=== PATIENT | female | born 1965 | race Caucasian/White ===

== ENCOUNTER 2016-12-29 19:31 | Observation (INO) | payer MEDICARE ==
[2016-12-29] MEDS ORDERED: Sodium Chloride 0.9% 1000 ML 1,000 ML IV STA (19:56)
[2016-12-29] MEDS ORDERED: Sodium Chloride 0.9% 1000 ML 1,000 ML ONE ×3 (20:01→21:00)
--- NOTE | 2016-12-29 20:01 | ERPHSYRPT ---
- History of Present Illness Time Seen by Provider: 12/29/16 21:51 Source: patient Patient Subjective Stated Complaint: pt continues to state that her belly hurts and she cannot open her eyes - points to her upper abdomen - continues to state "help me' - reports that she has been vomiting all day - states that she is in her room at home Triage Nursing Assessment: ambulatory to treatment area - requires assistance to walk. alert - refuses to open eyes or state name and birthday. resps labored per anxiety. skin pwd - no rash/injury Physician History: 51-year-old female was brought into the emergency room by her mother with complaining of multiple different complaints including abdominal pain, not feeling well, very confused, cannot open her eyes, whole body hurts. Patient's mother states that when she left home early in the morning went for work and since then she came back from work. She found her very confused and was complaining of abdominal pain. Allergies/Adverse Reactions: meperidine HCl [From Demerol] Adverse Reaction (Verified 12/29/16 19:38) morphine Adverse Reaction (Verified 12/29/16 19:38) Home Medications: Duloxetine HCl [Cymbalta] 60 mg PO BID 10/24/13 [History] Omeprazole [Prilosec] 40 mg PO DAILY 10/24/13 [History] Propranolol HCl [Inderal LA] 60 mg PO DAILY 10/24/13 [History] Tizanidine HCl 4 mg [Zanaflex 4 MG] 4 mg PO TID PRN PRN 10/24/13 [History] Calcium Carbonate [Calcium] 600 mg PO DAILY 05/11/16 [History] Ergocalciferol (Vitamin D2) [Vitamin D2] 50,000 units PO UD 05/11/16 [History] Ferrous Sulfate 325 mg [Feosol 325 mg] 325 mg PO QID 05/11/16 [History] Folic Acid 1 mg PO DAILY 05/11/16 [History] Ibuprofen 600 mg PO UD 05/11/16 [History] Levothyroxine Sodium 25 Mcg [Synthroid 25 Mcg] 25 mcg PO DAILY 05/11/16 [ History] Morphine Sulfate [Morphine Sulfate ER] 15 mg PO Q12H 06/13/16 [History] Hx Tetanus, Diphtheria Vaccination/Date Given: No Hx Influenza Vaccination/Date Given: No Hx Pneumococcal Vaccination/Date Given: No Immunizations Up to Date: No - Review of Systems Constitutional: No Symptoms Eyes: No Symptoms Ears, Nose, & Throat: No Symptoms Respiratory: No Cough, No Dyspnea Cardiac: No Chest Pain, No Edema, No Syncope Abdominal/Gastrointestinal: Abdominal Pain, Nausea, Vomiting, No Diarrhea Genitourinary Symptoms: No Dysuria Musculoskeletal: No Back Pain, No Neck Pain Skin: No Rash Neurological: No Dizziness, No Focal Weakness, No Sensory Changes Psychological: No Symptoms Endocrine: No Symptoms All Other Systems: Unable due to condition - Past Medical History Pertinent Past Medical History: Yes Neurological History: Migraines, Other ENT History: No Pertinent History Cardiac History: Hypertension, Other Respiratory History: No Pertinent History Endocrine Medical History: Hypothyroidism Musculoskeletal History: Degenerative Disk Disease, Fibromyalgia GI Medical History: GERD History: No Pertinent History Psycho-Social History: No Pertinent History, Bipolar Female Reproductive Disorders: No Pertinent History Other Medical History: fractured L ankle 02/26/16. Pt got out of a boot in July. See chart for list of past medical history - Past Surgical History Past Surgical History: Yes Neuro Surgical History: No Pertinent History Cardiac: No Pertinent History Respiratory: No Pertinent History Gastrointestinal: Cholecystectomy Genitourinary: No Pertinent History Musculoskeletal: Orthopedic Surgery Female Surgical History: Hysterectomy, Tubal Ligation Other Surgical History: tonsil, - Social History Smoking Status: Never smoker How long have you smoked: 20 Exposure to second hand smoke: No Drug Use: none Patient Lives Alone: No - Nursing Vital Signs Nursing Vital Signs: Initial Vital Signs Temperature 98.7 F Temperature Source Rectal Pulse Rate 72 Respiratory Rate 16 Blood Pressure [Right Arm] 149/88 Pain Intensity 2 - Physical Exam General Appearance: mild distress, anxiety, lethargy Eye Exam: PERRL/EOMI, eyes nml inspection Ears, Nose, Throat Exam: normal ENT inspection, TMs normal, pharynx normal, moist mucous membranes Neck Exam: normal inspection, non-tender, supple, full range of motion Respiratory Exam: normal breath sounds, lungs clear, No respiratory distress Cardiovascular Exam: regular rate/rhythm, normal heart sounds, normal peripheral pulses Gastrointestinal/Abdomen Exam: soft, normal bowel sounds, No tenderness, No mass Back Exam: normal inspection, normal range of motion, No CVA tenderness, No vertebral tenderness Extremity Exam: normal inspection, normal range of motion, pelvis stable Neurologic Exam: sensation nml, disoriented, confusion, agitation, intoxicated appearance, No motor deficits, No sensory deficit, No uncooperative Skin Exam: normal color, warm, dry, No rash Lymphatic Exam: No adenopathy SpO2 Interpretation: normal SpO2: 99 Oxygen Delivery: Room Air - Course Nursing assessment & vital signs reviewed: Yes EKG Interpreted by Me: Sinus Rhythm Ordered Tests: Active Orders 24 hr Category Date Time Status Microarray Analyst STAT Care 12/29/16 20:29 Active EKG-ER Only STAT Care 12/29/16 19:56 Active IV Insertion STAT Care 12/29/16 19:59 Active cath [Cath for Specimen-Straight] STAT Care 12/29/16 20:19 Active HEAD WITHOUT CONTRAST [CT] Stat Exams 12/29/16 19:58 Taken AMYLASE Stat Lab 12/29/16 20:00 Completed CBC W DIFF Stat Lab 12/29/16 20:00 Completed CMP Stat Lab 12/29/16 20:00 Completed LIPASE Stat Lab 12/29/16 20:00 Completed Lactic Acid Stat Lab 12/29/16 20:00 Results Lactic Acid Stat Lab 12/29/16 21:45 Ordered TROPONIN Stat Lab 12/29/16 20:00 Completed UA W/ MICROSCOPIC Stat Lab 12/29/16 20:15 Completed Urine Triage Profile Stat Lab 12/29/16 20:15 Completed Medication Summary Generic Name Dose Route Start Last Admin Trade Name Freq PRN Reason Stop Dose Admin Sodium Chloride 2,000 mls @ 999 mls/hr 12/29/16 20:44 12/29/16 20:54 Sodium Chloride 0.9% 1000 Ml IV 12/29/16 22:44 999 mls/hr .Q2H1M STA Administration Discontinued Medications Generic Name Dose Route Start Last Admin Trade Name Freq PRN Reason Stop Dose Admin Sodium Chloride 1,000 mls @ 999 mls/hr 12/29/16 19:56 12/29/16 20:01 Sodium Chloride 0.9% 1000 Ml IV 12/29/16 20:56 999 mls/hr .Q1H1M STA Administration Sodium Chloride Confirm 12/29/16 20:01 Sodium Chloride 0.9% 1000 Ml Administered 12/29/16 20:02 Dose 1,000 mls @ ud .ROUTE .STK-MED ONE Ceftriaxone Sodium/Dextrose 2 g in 50 mls @ 100 mls/hr 12/29/16 20:43 20:52 Rocephin 2 Gm-D5w 50ml Bag IV 12/29/16 21:12 100 mls/hr STAT STA Administration Azithromycin 500 mg in 250 mls @ 250 mls/hr 12/29/16 20:43 12/29/16 21:09 Zithromax 500 Mg/ 250 Ml Nacl Premix IV 12/29/16 21:42 250 mls/hr STAT STA Administration Sodium Chloride Confirm 12/29/16 20:48 Sodium Chloride 0.9% 1000 Ml Administered 12/29/16 20:49 Dose 1,000 mls @ ud .ROUTE .STK-MED ONE Ceftriaxone Sodium/Dextrose Confirm 12/29/16 20:48 Rocephin 2 Gm-D5w 50ml Bag Administered 12/29/16 20:49 Dose 2 g in 50 mls @ ud IV .STK-MED ONE Azithromycin Confirm 12/29/16 21:00 Zithromax 500 Mg/ 250 Ml Nacl Premix Administered 12/29/16 21:01 Dose 500 mg in 250 mls @ ud IV .STK-MED ONE Sodium Chloride Confirm 12/29/16 21:00 Sodium Chloride 0.9% 1000 Ml Administered 12/29/16 21:01 Dose 1,000 mls @ ud .ROUTE .STK-MED ONE Ondansetron HCl 4 mg 12/29/16 20:05 12/29/16 20:05 Zofran 4 Mg/2 Ml Vial IV 12/29/16 20:06 4 mg STAT ONE Administration Ondansetron HCl Confirm 12/29/16 20:04 Zofran 4 Mg/2 Ml Vial Administered 12/29/16 20:05 Dose 4 mg .ROUTE .STK-MED ONE Lab/Rad Data: Laboratory Result Diagrams 12/29/16 20:00 12/29/16 20:00 Laboratory Results 12/29/16 12/29/16 12/29/16 Range/Units 20:15 20:15 20:00 WBC (4.0-10.5) K/mm3 RBC (4.1-5.4) M/mm3 Hgb (12.0-16.0) gm/dl Hct (35-47) % MCV (78-100) fl MCH (26-32) pg MCHC (32-36) g/dl RDW (11.5-14.0) % Plt Count (150-450) K/mm3 MPV (6-9.5) fl Gran % (36.0-66.0) % Lymphocytes % (24.0-44.0) % Monocytes % (0.0-12.0) % Eosinophils % (0.00-5.0) % Basophils % (0.0-0.4) % Basophils # (0-0.4) Sodium 145 (136-145) mEq/L Potassium 3.9 (3.5-5.1) mEq/L Chloride 105 (98-107) mEq/L Carbon Dioxide 25.1 (21-32) mEq/L Anion Gap 18.5 H (5-15) MEQ/L BUN 15 (9-20) mg/dL Creatinine 0.92 (0.55-1.30) mg/dl Estimated GFR > 60 ML/MIN Glucose 144 H (70-110) MG/DL Lactic Acid (0.4-2.0) Calcium 9.8 (8.5-10.1) mg/dL Total Bilirubin 0.80 (0.2-1.0) mg/dL AST 25 (15-37) U/L ALT 39 (12-78) U/L Alkaline Phosphatase 86 (46-116) U/L Troponin I < 0.017 (0.000-0.056) ng/ml Serum Total Protein 7.7 (6.4-8.2) gm/dL Albumin 3.9 (3.4-5.0) g/dL Amylase 28 (25-115) U/L Lipase 75 (73-393) U/L Ur Collection Type CATH Urine Color YELLOW (YELLOW) Urine Appearance CLEAR (CLEAR) Urine pH 8.0 (5-6) Ur Specific [place] 1.005 (1.005-1.025) Urine Protein TRACE (Negative) Urine Ketones MODERATE (NEGATIVE) Urine Blood 5-10 (0-5) Cory/ul Urine Nitrite NEGATIVE (NEGATIVE) Urine Bilirubin NEGATIVE (NEGATIVE) Urine Urobilinogen NORMAL (0-1) mg/dL Ur Leukocyte Esterase TRACE (NEGATIVE) Urine Microscopic RBC 0-2 (0-2) /HPF Urine Microscopic WBC 0-2 (0-5) /HPF Urine Mucus SLIGHT (NEGATIVE) /HPF Urine Glucose NEGATIVE (NEGATIVE) mg/dL Urine Opiates Level POS. (NEGATIVE) Ur Methadone NEG. (NEGATIVE) Urine Barbiturates NEG. (NEGATIVE) Ur Phencyclidine (PCP) NEG. (NEGATIVE) Urine Amphetamine NEG. (NEGATIVE) U Benzodiazepine Level NEG. (NEGATIVE) Urine Cocaine NEG. (NEGATIVE) Urine Marijuana (THC) NEG. (NEGATIVE) Specimen Received 12-29-165 12/29/16 12/29/16 Range/Units 20:00 20:00 WBC 20.5 H (4.0-10.5) K/mm3 RBC 5.92 H (4.1-5.4) M/mm3 Hgb 16.8 H (12.0-16.0) gm/dl Hct 49.6 H (35-47) % MCV 83.8 (78-100) fl MCH 28.3 (26-32) pg MCHC 33.9 (32-36) g/dl RDW 13.8 (11.5-14.0) % Plt Count 402 (150-450) K/mm3 MPV 9.8 H (6-9.5) fl Gran % 86.1 H (36.0-66.0) % Lymphocytes % 8.8 L (24.0-44.0) % Monocytes % 4.6 (0.0-12.0) % Eosinophils % 0.4 (0.00-5.0) % Basophils % 0.1 (0.0-0.4) % Basophils # 0.03 (0-0.4) Sodium (136-145) mEq/L Potassium (3.5-5.1) mEq/L Chloride (98-107) mEq/L Carbon Dioxide (21-32) mEq/L Anion Gap (5-15) MEQ/L BUN (9-20) mg/dL Creatinine (0.55-1.30) mg/dl Estimated GFR ML/MIN Glucose (70-110) MG/DL Lactic Acid 2.4 H (0.4-2.0) Calcium (8.5-10.1) mg/dL Total Bilirubin (0.2-1.0) mg/dL AST (15-37) U/L ALT (12-78) U/L Alkaline Phosphatase (46-116) U/L Troponin I (0.000-0.056) ng/ml Serum Total Protein (6.4-8.2) gm/dL Albumin (3.4-5.0) g/dL Amylase (25-115) U/L Lipase (73-393) U/L Ur Collection Type Urine Color (YELLOW) Urine Appearance (CLEAR) Urine pH (5-6) Ur Specific [place] (1.005-1.025) Urine Protein (Negative) Urine Ketones (NEGATIVE) Urine Blood (0-5) Cory/ul Urine Nitrite (NEGATIVE) Urine Bilirubin (NEGATIVE) Urine Urobilinogen (0-1) mg/dL Ur Leukocyte Esterase (NEGATIVE) Urine Microscopic RBC (0-2) /HPF Urine Microscopic WBC (0-5) /HPF Urine Mucus (NEGATIVE) /HPF Urine Glucose (NEGATIVE) mg/dL Urine Opiates Level (NEGATIVE) Ur Methadone (NEGATIVE) Urine Barbiturates (NEGATIVE) Ur Phencyclidine (PCP) (NEGATIVE) Urine Amphetamine (NEGATIVE) U Benzodiazepine Level (NEGATIVE) Urine Cocaine (NEGATIVE) Urine Marijuana (THC) (NEGATIVE) Specimen Received - Progress Progress: improved Discussed with : Toñito Will see patient in: hospital (observation) Counseled pt/family regarding: lab results, diagnosis, need for follow-up, rad results - Departure Time of Disposition: 21:55 Departure Disposition: Observation Clinical Impression: Dehydration Leukocytosis (leucocytosis) Qualifiers: Leukocytosis type: other Qualified Code(s): D72.828 - Other elevated white blood cell count Condition: Fair Critical Care Time: Yes Critical Care Time(excluding separately billable procedures): 30-74 minutes
[2016-12-29] MEDS ORDERED: Zofran 4 MG/2 ML VIAL ONE ×2 (20:04→22:12)
[2016-12-29] MEDS ORDERED: Zofran 4 MG/2 ML VIAL IV ONE ×2 (20:05→22:13)
[2016-12-29 20:10] LABS: BASOPHIL % 0.1 % (0.0-0.4); Eosinophil % 0.4 % (0.00-5.0); Granulocytes % 86.1 % (36.0-66.0); Lymphocytes % 8.8 % (24.0-44.0); Mean Cell Volume 83.8 fl (78-100); Mean Platelet Volume 9.8 fl (6-9.5); Monocytes % 4.6 % (0.0-12.0); Platelet Count 402 K/mm3 (150-450); Red Blood Count 5.92 M/mm3 (4.1-5.4); Red Cell Distribution Width 13.8 % (11.5-14.0); White Blood Count 20.5 K/mm3 (4.0-10.5)
[2016-12-29 20:11] LABS: Mean Corpuscular Hemoglobin 28.3 pg (26-32)
[2016-12-29 20:15] LABS: Lactic Acid 2.4 (0.4-2.0)
[2016-12-29 20:34] LABS: ALBUMIN 3.9 g/dL (3.4-5.0); ALKALINE PHOSPHATASE 86 U/L (46-116); ANION GAP 18.5 MEQ/L (5-15); BLOOD UREA NITROGEN 15 mg/dL (9-20); CHLORIDE 105 mEq/L (98-107); Carbon Dioxide 25.1 mEq/L (21-32); Glucose 144 MG/DL (70-110); LIPASE 75 U/L (73-393); Potassium 3.9 mEq/L (3.5-5.1); SGOT/AST 25 U/L (15-37); SGPT/ALT 39 U/L (12-78); SODIUM 145 mEq/L (136-145); Total Protein 7.7 gm/dL (6.4-8.2)
[2016-12-29 20:35] LABS: TROPONIN < 0.017 ng/ml (0.000-0.056)
[2016-12-29] MEDS ORDERED: Zithromax 500 MG/ 250 ML NaCl Premix 500 MG/250 ML IVPB IV STA (20:43)
[2016-12-29] MEDS ORDERED: ROCEPHIN 2 Gm-D5w 50ML BAG** 2 G/50 ML IVPB IV STA (20:43)
[2016-12-29] MEDS ORDERED: Sodium Chloride 0.9% 1000 ML 2,000 ML IV STA (20:44)
[2016-12-29 20:45] LABS: Collection Type CATH
[2016-12-29 20:47] LABS: Bilirubin NEGATIVE (NEGATIVE); Glucose NEGATIVE (NEGATIVE); Leukocyte Esterase TRACE (NEGATIVE)
[2016-12-29 20:48] LABS: COMPLETE URINE MICROSCOPIC? YES; Mucus SLIGHT /HPF (NEGATIVE); WBC 0-2 /HPF (0-5)
[2016-12-29] MEDS ORDERED: ROCEPHIN 2 Gm-D5w 50ML BAG** 2 G/50 ML IVPB IV ONE (20:48)
[2016-12-29 20:49] LABS: ADD URINE CULTURE? NO (NO)
[2016-12-29] MEDS ORDERED: Zithromax 500 MG/ 250 ML NaCl Premix 500 MG/250 ML IVPB IV ONE (21:00)
[2016-12-29] MEDS ORDERED: Zofran 4 MG/2 ML VIAL IV PRN (22:25)
[2016-12-29] MEDS ORDERED: Sodium Chloride 0.9% W/ 20 mEq KCl/LITER 1,000 ML IV SCH (22:25)
[2016-12-29] MEDS ORDERED: TYLENOL 325 MG PO PRN (22:25)
--- NOTE | 2016-12-29 22:40 | XRAY ---
Indication: Confusion to time and place. History of migraines, hypertension, and bipolar disorder. Multiple contiguous axial images obtained through the head without contrast. Comparison: None Minimal motion artifact through the base of the head. No acute intracranial hemorrhage, abnormal extra-axial fluid collection, or mass effect. Fourth ventricle is midline. No hydrocephalus. Le-white matter differentiation preserved. Bony calvarium intact. Visualized paranasal sinuses and mastoid air cells are clear. Impression: Minimal motion artifact. No acute intracranial abnormalities. CTDI 67.80
[2016-12-30 05:53] LABS: BASOPHIL % 0.1 % (0.0-0.4); Granulocytes % 71.3 % (36.0-66.0); Mean Cell Volume 87.2 fl (78-100); Mean Corpuscular Hemoglobin 28.5 pg (26-32); Mean Platelet Volume 9.3 fl (6-9.5); Monocytes % 6.6 % (0.0-12.0); Platelet Count 256 K/mm3 (150-450); Red Blood Count 4.39 M/mm3 (4.1-5.4); Red Cell Distribution Width 13.6 % (11.5-14.0); White Blood Count 11.4 K/mm3 (4.0-10.5)
--- NOTE | 2016-12-30 05:57 | PCM.HP ---
History of Present Illness - Chief Complaint Chief Complaint: Leukocyosis, dehdration Date: 12/30/16 History of Present Illness: is a 51 year old female. who became very nauseated yesterday morning and was at home vomiting all day. She started having some epigastric pain after the vomiting. Nonbloody nonbilious emesis and then developed diarrhea all day. She was unable to eat or drink anythign. She was taking her regular medications no medications changes. She had no travel or undercooked foods and no sick contacts. She had no coughing or breathing difficulties and no dysuria or flank pain. She currently feels much better after the IV fluids and no longer vomiting. - Review of Systems Constitutional: No Fever, No Chills Eyes: No Symptoms Ears, Nose, & Throat: No Symptoms Respiratory: No Cough, No Short Of Breath Cardiac: No Chest Pain, No Edema, No Syncope Abdominal/Gastrointestinal: Nausea, Vomiting, Diarrhea, No Abdominal Pain Genitourinary Symptoms: No Dysuria Musculoskeletal: No Back Pain, No Neck Pain Skin: No Rash Neurological: No Dizziness, No Focal Weakness, No Sensory Changes Psychological: No Symptoms Endocrine: No Symptoms Hematologic/Lymphatic: No Symptoms Immunological/Allergic: No Symptoms Medications & Allergies Home Medications: Home Medication List Duloxetine HCl [Cymbalta] 60 mg PO BID 10/24/13 [History Confirmed 12/29/16] Omeprazole [Prilosec] 40 mg PO DAILY 10/24/13 [History Confirmed 12/29/16] Propranolol HCl [Inderal LA] 60 mg PO HS 10/24/13 [History Confirmed 12/29/16] Tizanidine HCl 4 mg [Zanaflex 4 MG] 4 mg PO QHS 10/24/13 [History Confirmed 12/29/16] Calcium Carbonate [Calcium] 600 mg PO DAILY 05/11/16 [History Confirmed 12/29/16 ] Ergocalciferol (Vitamin D2) [Vitamin D2] 50,000 units PO UD 05/11/16 [History Confirmed 12/29/16] Ferrous Sulfate 325 mg [Feosol 325 mg] 325 mg PO QID 05/11/16 [History Confirmed 12/29/16] Folic Acid 1 mg PO DAILY 05/11/16 [History Confirmed 12/29/16] Ibuprofen 600 mg PO DAILY PRN PRN 05/11/16 [History Confirmed 12/29/16] Levothyroxine Sodium 25 Mcg [Synthroid 25 Mcg] 50 mcg PO DAILY 05/11/16 [ History Confirmed 12/29/16] Morphine Sulfate [Morphine Sulfate ER] 15 mg PO Q12H 06/13/16 [History Confirmed 12/29/16] Allergies/Adverse Reactions: Allergies Allergy/AdvReac Type Severity Reaction Status Date / Time meperidine HCl [From Demerol] AdvReac Verified 12/29/16 19:38 - Past Medical History Past Medical History: Yes Neurological History: Migraines, Other ENT History: No Pertinent History Cardiac History: Hypertension, Other Respiratory History: No Pertinent History Endocrine Medical History: Hypothyroidism Musculoskelatal History: Degenerative Disk Disease, Fibromyalgia GI Medical History: GERD History: No Pertinent History Pyscho-Social History: No Pertinent History, Bipolar Reproductive Disorders: No Pertinent History Comment: fractured L ankle 02/26/16. Pt got out of a boot in July. See chart for list of past medical history - Female History Are you now?: No - Past Surgical History Past Surgical History: Yes Neuro Surgical History: No Pertinent History Cardiac History: No Pertinent History Respiratory Surgery: No Pertinent History GI Surgical History: Cholecystectomy Genitourinary Surgical Hx: No Pertinent History Musculskeletal Surgical Hx: Orthopedic Surgery Female Surgical History: Hysterectomy, Tubal Ligation Other Surgical History: tonsil, - Social History Smoking Status: Current every day smoker How long have you smoked: 20 Exposure to second hand smoke: No Alcohol: Occasionally Drug Use: none - Physical Exam Vital Signs: Vital Signs - 24 hr Temp Pulse Resp BP Pulse Ox 12/30/16 04:18 98.2 F 82 17 115/58 97 12/29/16 22:50 97.8 F 77 16 125/60 96 12/29/16 21:56 99 12/29/16 21:37 98.7 F 72 12/29/16 20:52 72 16 149/88 96 12/29/16 20:34 66 68 H 146/85 97 12/29/16 19:38 99.0 F 73 24 132/90 99 General Appearance: no apparent distress, alert Neurologic Exam: alert, oriented x 3, cooperative, normal mood/affect, nml cerebellar function, sensation nml, No motor deficits Eye Exam: PERRL/EOMI, eyes nml inspection Ears, Nose, Throat Exam: normal ENT inspection, TMs normal, pharynx normal, moist mucous membranes Neck Exam: normal inspection, non-tender, supple, full range of motion Respiratory Exam: normal breath sounds, lungs clear, No respiratory distress Cardiovascular Exam: regular rate/rhythm, normal heart sounds, normal peripheral pulses Gastrointestinal/Abdomen Exam: soft, normal bowel sounds, No tenderness, No mass Back Exam: normal inspection, normal range of motion, No CVA tenderness, No vertebral tenderness Extremity Exam: normal inspection, normal range of motion, pelvis stable Skin Exam: normal color, warm, dry, No rash Lymphatic Exam: No adenopathy Results - Radiology Impressions Radiology Exams & Impressions: Radiology Procedures Category Date Time Status CHEST 2 VIEWS (PA AND LAT) Routine Exams 12/30/16 05:41 Ordered - Other Procedures and Tests Respiratory Therapy 12/29/16 23:07 Smoking Cessation Education ONCE Assessment/Plan (1) Gastroenteritis Current Visit: Yes Status: Acute Assessment & Plan: with the luekocytosis and severity of symptoms will check chest x-ray PA/Lat rule out pneumonia she seems much improved this am if tolerating po and cxr negative will plan to discharge to home today with supportive therapy. Code(s): K52.9 - NONINFECTIVE GASTROENTERITIS AND COLITIS, UNSPECIFIED (2) Leukocytosis (leucocytosis) Current Visit: Yes Status: Acute Qualifiers: Leukocytosis type: other Qualified Code(s): D72.828 - Other elevated white blood cell count Code(s): D72.829 - ELEVATED WHITE BLOOD CELL COUNT, UNSPECIFIED (3) Dehydration Current Visit: Yes Status: Acute Code(s): E86.0 - DEHYDRATION
[2016-12-30 06:06] LABS: ANION GAP 14.2 MEQ/L (5-15); BLOOD UREA NITROGEN 9 mg/dL (9-20); CHLORIDE 112 mEq/L (98-107); Carbon Dioxide 22.6 mEq/L (21-32); Glucose 117 MG/DL (70-110); Potassium 3.5 mEq/L (3.5-5.1); SODIUM 145 mEq/L (136-145)
[2016-12-30 08:11] VITALS: BP 133/75; PULSE 81; O2SAT 96
--- NOTE | 2016-12-30 08:22 | PCM.DCORD ---
- Discharge Discharge Date: 12/30/16 Disposition: Home, Self-Care Condition: Fair Prescriptions: Continue Omeprazole [Prilosec] 40 mg PO DAILY Propranolol HCl [Inderal LA] 60 mg PO HS Duloxetine HCl [Cymbalta] 60 mg PO BID Tizanidine HCl 4 mg [Zanaflex 4 MG] 4 mg PO QHS Levothyroxine Sodium 25 Mcg [Synthroid 25 Mcg] 50 mcg PO DAILY Ferrous Sulfate 325 mg [Feosol 325 mg] 325 mg PO QID Folic Acid 1 mg PO DAILY Ibuprofen 600 mg PO DAILY PRN PRN PRN Reason: Pain Ergocalciferol (Vitamin D2) [Vitamin D2] 50,000 units PO UD Calcium Carbonate [Calcium] 600 mg PO DAILY Morphine Sulfate [Morphine Sulfate ER] 15 mg PO Q12H Additional Instructions: Large Hiatal Hernia follow up outpatient. Follow up with: ANGELLA QUISPE [Primary Care Provider] - JONNY ROJAS [NON-STAFF PHY W/O PRIVILEGES] - 1 Week
--- NOTE | 2016-12-30 08:27 | PCM.DCORD ---
- Discharge Discharge Date: 12/30/16 Disposition: Home, Self-Care Condition: Fair Prescriptions: New Ondansetron HCl [Zofran] 4 mg PO Q4H PRN #20 tablet PRN Reason: Nausea/Vomiting Continue Omeprazole [Prilosec] 40 mg PO DAILY Propranolol HCl [Inderal LA] 60 mg PO HS Duloxetine HCl [Cymbalta] 60 mg PO BID Tizanidine HCl 4 mg [Zanaflex 4 MG] 4 mg PO QHS Levothyroxine Sodium 25 Mcg [Synthroid 25 Mcg] 50 mcg PO DAILY Ferrous Sulfate 325 mg [Feosol 325 mg] 325 mg PO QID Folic Acid 1 mg PO DAILY Ibuprofen 600 mg PO DAILY PRN PRN PRN Reason: Pain Ergocalciferol (Vitamin D2) [Vitamin D2] 50,000 units PO UD Calcium Carbonate [Calcium] 600 mg PO DAILY Morphine Sulfate [Morphine Sulfate ER] 15 mg PO Q12H Additional Instructions: Large Hiatal Hernia follow up outpatient. Follow up with: ANGELLA QUISPE [Primary Care Provider] - JONNY ROJAS [NON-STAFF PHY W/O PRIVILEGES] - 1 Week
[2016-12-30] MEDS ORDERED: Protonix 40MG Tablet PO SCH (10:00)
[2016-12-30] MEDS ORDERED: Calcium 500MG W/Vit D Tablet PO SCH (10:00)
[2016-12-30] MEDS ORDERED: NON-FORMULARY ITEM (Omeprazole [Prilosec] 40 MG) PO SCH (10:00)
[2016-12-30] MEDS ORDERED: SYNTHROID 50 MCG PO SCH (10:00)
[2016-12-30] MEDS ORDERED: Cymbalta 30 MG Capsule PO SCH (10:00)
[2016-12-30] MEDS ORDERED: NON-FORMULARY ITEM (Duloxetine Hcl [Cymbalta] 60 MG) PO SCH (10:00)
[2016-12-30] MEDS ORDERED: Ms Contin 15 MG PO SCH (10:00)
[2016-12-30] MEDS ORDERED: SYNTHROID 25 MCG PO SCH (10:00)
--- NOTE | 2016-12-30 21:50 | XRAY ---
Indication: Abdominal pain. Comparison: None PA/lateral chest demonstrates large hiatal hernia with intrathoracic stomach. Heart is not enlarged. Lungs inflated and clear. Bony thorax intact. Impression: Large hiatal hernia with intrathoracic stomach. No acute cardiopulmonary abnormalities. Comment: Preliminary interpretation was made by [facility]. No discrepancy.
[2016-12-30] MEDS ORDERED: PROPRANOLOL HCL 60 MG PO SCH (22:00)
[2016-12-30] MEDS ORDERED: Zithromax 500 MG/ 250 ML NaCl Premix 500 MG/250 ML IVPB IV SCH (22:00)
[2016-12-30] MEDS ORDERED: Zanaflex 4 MG PO SCH (22:00)
[2016-12-30] MEDS ORDERED: ROCEPHIN 1 Gm-D5w 50 ml Bag** 1 G/50 ML IVPB IV SCH (22:00)
== END 2016-12-30 09:35 | disposition home or self-care (01) ==
LOC: ED 19:31 → MED SURG 22:10
PROVIDERS: ADMIT Family Medicine; ATTEND Family Medicine
DX: D72.829 Elevated white blood cell count, unspecified (principal); E86.0 Dehydration; Z79.891 Long term (current) use of opiate analgesic
CPT/HCPCS: 93041; 96374; 96365; 96366; 99285; 36000; 96360; 96361; 96375; 93005; 82150; 81000; 36415 ×2; 83690; 80307; 85025 ×2; 80048; 80053; 84484; 71020; 70450; 83605 ×2; P9612; G0378; J0456; J0696; J2405

== ENCOUNTER 2017-03-29 07:53 | Day surgery (SDC) | payer MEDICARE ==
[~2017-03-29 07:53] MED LIST: Lactated Ringers 1,000 ML IV ONE; Lactated Ringers 1,000 ML IV SCH
[2017-03-29] MEDS ORDERED: SUBLIMAZE 100 MCG/2 ML IV ONE (07:54)
[2017-03-29] MEDS ORDERED: VERSED 5 MG/5 ML IV ONE (07:54)
--- NOTE | 2017-03-29 10:08 | OP ---
SURGERY DATE/TIME: 03/29/2017923 PREOPERATIVE DIAGNOSIS: Epigastric pain, hiatal hernia on CT. POSTOPERATIVE DIAGNOSIS: Large hiatal hernia about 50% with marked distortion. It is angulated. It does have some rubs and irritation probably from being stuck above the diaphragm. There is mild antritis. There is grade II/III gastroesophageal reflux disease. PROCEDURE: EGD with cold biopsy. SURGEON: Keshav Bradley M.D. ANESTHESIA: IV sedation. INDICATION: The patient presented to the emergency room with severe epigastric pain. She was noted to have a fairly large hiatal hernia. She presented to the office for evaluation. She did not have endoscopic or major evaluations yet. DESCRIPTION OF PROCEDURE: She was taken to endoscopy. IV sedation was titrated and monitored for 15 minutes. Versed and Fentanyl was used. Oximetry was kept over 90%. Anesthesia level was satisfactory. Esophagus was normal down to gastroesophageal junction. Grade II/III gastroesophageal reflux disease. There was a 5 inch hiatal hernia about 50% of the stomach. There was irritation of the upper stomach from having it stuck up through there. The distal half of the body and antrum was satisfactory. Pylorus satisfactory. Duodenal bulb and second portion satisfactory. There was just a very light antritis and almost pinpoint prepyloric ulcer seen fairly negligible this did not seem to be the principal issue. Her principle issue did seem to be the hiatal hernia. The scope was then withdrawn. The patient tolerated the procedure satisfactorily. No family was present. She will return to the office in three weeks.
[2017-03-29 10:21] VITALS: O2SAT 94
[2017-03-29 11:01] VITALS: PULSE 69
[2017-03-29 11:11] VITALS: BP 136/97
== END 2017-03-29 11:05 | disposition home or self-care (01) ==
LOC: SDC 07:53
PROVIDERS: ATTEND Surgery
PROC: 0DB68ZX Excision of Stomach, Via Natural or Artificial Opening Endoscopic, Diagnostic (ICD-10-PCS; principal; 2017-03-29)
DX: K44.9 Diaphragmatic hernia without obstruction or gangrene (principal); K21.9 Gastro-esophageal reflux disease without esophagitis; K29.60 Other gastritis without bleeding
CPT/HCPCS: 87081; J2250; J3010

== ENCOUNTER 2025-06-08 06:06 | Day surgery (SDC) | payer MEDICARE, OTHER ==
[2025-06-08] MEDS ORDERED: Lactated Ringers 1,000 ML IV ONE (06:17)
[2025-06-08] MEDS: Lactated Ringers 1,000 ML IV SCH (06:22)
[2025-06-08] MEDS ORDERED: propofoL IV ONE ×2 (07:34→07:51)
[2025-06-08 08:28] VITALS: RESP 18
[2025-06-08 08:40] VITALS: BP 127/78; PULSE 69; TEMP 97.6; O2SAT 98
--- NOTE | 2025-06-09 11:54 | OP ---
SURGERY DATE/TIME: 06/08/2025 [id number] PREOPERATIVE DIAGNOSIS: Screening exam. POSTOPERATIVE DIAGNOSIS: Normal colon. PROCEDURE: Colonoscopy. SURGEON: Kenneth Peterson MD. ANESTHESIA: Medication given by the anesthesia department. INDICATIONS: The patient is a 60-year-old white female presenting now for her first screening colonoscopy. She was apprised of the risks of the procedure including the risks of perforation, phlebitis, untoward reaction to medication, bleeding, and missed lesions. The patient verbalized her understanding and desired to have procedure performed. DESCRIPTION OF PROCEDURE AND FINDINGS: The patient was given medication by the anesthesia department. She had continuous pulse oximetry, ECG monitoring, and intermittent blood pressure monitoring during the examination. She was placed in a left lateral decubitus position. A digital rectal examination was performed revealed normal anal sphincter tone and no masses. A flexible Olympus videocolonoscope was used to intubate the rectum. A view of the colon was developed sequentially to the cecum. Upon insertion and withdrawal, including retroflexed view in the rectum, no mucosal lesions were encountered. The scope was removed from the patient, who tolerated the procedure well, and was sent back to outpatient recovery unit in good condition. The prep was noted to be fair.
== END 2025-06-08 08:43 | disposition home or self-care (01) ==
LOC: SDC 06:06
PROVIDERS: ATTEND Family Medicine
DX: Z12.11 Encounter for screening for malignant neoplasm of colon (principal)